=== PATIENT | male | born 1990 | race Caucasian/White ===

== ENCOUNTER 2017-10-18 09:00 | Emergency (ER) | payer SELFPAY ==
[~2017-10-18] VITALS: Ht 182.9 cm; Wt 120.4 kg
[2017-10-18 11:39] LABS: HEMATOCRIT 46.1 % (38.0-50.0); HEMOGLOBIN 15.5 G/DL (12.5-16.6); MCH 28.6 PG (29.0-34.0); MCHC 33.6 G/DL (30.0-36.0); MCV 85.1 FL (86-99); PLATELET COUNT 378 K/uL (156-360); RBC DIS.WIDTH-CV 12.5 % (11.8-14.6); RBC DIS.WIDTH-SD 38.5 % (39-53); RED BLOOD COUNT 5.42 M/uL (4.00-5.50)
[2017-10-18 11:52] LABS: CHLORIDE 109 mEq/L (99-109); POTASSIUM 3.7 mEq/L (3.7-5.4); SODIUM 141 mEq/L (136-147)
[2017-10-18 11:53] LABS: GLUCOSE 98 mg/dL (70-99)
[2017-10-18 11:57] LABS: GFR ESTIMATE (CALCULATED) > 59 mL/min/ (58.99-99999)
[2017-10-18 11:58] LABS: UREA NITROGEN (BUN) 10 mg/dL (9-23)
[2017-10-18 12:49] LABS: C-REACTIVE PROTEIN 153.9 MG/L (0-10)
[2017-10-18 14:43] LABS: APPEARANCE YELLOW/CLOUDY; CRYSTALS NO CRYSTALS SEEN
[2017-10-18] MEDS ORDERED: NAPROSYN500 MG PO (15:33)
[2017-10-18 15:54] VITALS: BP 134/82
[2017-10-18 16:33] LABS: MONONUCLEAR WBC'S 31 %; POLYNUCLEAR WBC'S 69 % (0-25); SYNOVIAL FLUID EOSINOPHILS 0 % (0-25)
[2017-10-18 16:43] LABS: WHITE CELL COUNT 29000 /MM^3 (0-200.0)
[2017-10-18 16:45] LABS: RED CELL COUNT 9000 /MM^3 (0-1)
== END 2017-10-18 15:55 | disposition home or self-care (01) ==
LOC: EME 09:00
PROVIDERS: Nurse Practitioner Family
PROC: 0M9N3ZX Drainage of Right Knee Bursa and Ligament, Percutaneous Approach, Diagnostic (ICD-10-PCS; principal; 2017-10-18)
DX: S83.91XA Sprain of unspecified site of right knee, initial encounter (principal); M25.461 Effusion, right knee; W19.XXXA Unspecified fall, initial encounter
CPT/HCPCS: 73564; 80048; 85027; 86140; 87205; 89051; 89060; 99281; 99284